=== PATIENT | female | born 1945 | race Native Hawaiian/Other Pacific Islander ===

== ENCOUNTER 2022-01-11 10:55 | Outpatient (CLI) | payer OTHER | END 2022-01-11 19:35 | disposition home or self-care (01) | LOC: US 10:55 | PROVIDERS: ATTEND Registered Nurse | DX: R22.2 Localized swelling, mass and lump, trunk (principal) ==

== ENCOUNTER 2022-04-05 10:58 | Outpatient (CLI) | payer OTHER | END 2022-04-05 18:58 | disposition home or self-care (01) | LOC: MAMMO 10:58 | PROVIDERS: ATTEND Registered Nurse | DX: Z12.31 Encounter for screening mammogram for malignant neoplasm of breast (principal) ==